=== PATIENT | female | born 1950 | race Caucasian/White ===

== ENCOUNTER → 2017-08-29 | Day surgery (SDC) | payer OTHER ==
[2017-08-23 10:57] VITALS: BMI 39.0
[~2017-08-29] VITALS: Ht 162.6 cm; Wt 105.9 kg
[~2017-08-29] MED LIST: ADVIN25/60 INH; ASPCH81X PO; ATOR-24 PO; BUME1TAB PO; CYM/60 PO; GABA600T PO; GLIP-199 PO; INSDGI SC; INSU100I SC; IPRASOL4 INH; LIDOCAINE HCL 2% 2 ML VIAL (20MG/ML) ONE; LISI-461 PO; LORA-741 PO; MELATAB2 PO; METF-383 PO; MONT1TAB3 PO; NITR0.4D6 PO; ONDA4TAB46 PO; POTA1TAB97 PO; PRLSR20 PO; PROPOFOL IV EMULSION 10 MG/ML 20 ML VIAL IV ONE; RANI150T3 PO; SODIUM CHLORIDE 0.9% 500ML 500 ML IV ONE; VNTHFA/IN INH
[2017-08-29 10:28] VITALS: Ht 162.6 cm; Wt 105.9 kg
--- NOTE | 2017-08-29 10:43 | Endo History and Physical ---
History & Physical Date of Service: Aug 29, 2017. Chief Complaint: dysphagia Referring Physician: POLINA Vazquez History of Present Illness patient with dysphagia Past Surgical History Hx Internal Defibrillator: No Hx Pacemaker: No Hx Abdominal Surgery: Yes (DRU BSO) Hx of Implantable Prosthesis: No Hx Post-Op Nausea and Vomiting: No Hx Cancer Surgery: Yes (SKIN EXCISION) Hx Thoracic Surgery: No Hx Orthopedic: Yes (CERVICAL FUSION (GOOD ROM), RT/LEFT TKA) Hx Urinary Tract Surgery: No Family History None Social History Smoking Status: Never Smoker Hx Substance Use: No Hx Alcohol Use: No Allergies Coded Allergies: Adhesives (Verified Allergy, Unknown, SKIN IRRITATION, 08/29/17) NO KNOWN DRUG ALLERGIES (Verified Allergy, Unknown, ., 08/29/17) Current Medications Reported Home Medications Medications Dose Route/Sig Max Daily Dose Days Date Category Dose Instructions Ventolin Hfa (Albuterol) 200 Puffs/00373 Mcg Aers 2-4 Puffs INH Q6H PRN 08/23/17 Reported Singulair (Montelukast Sodium) 10 Mg Tab 10 Mg PO QAM 08/23/17 Reported Zantac (Ranitidine HCl) 150 Mg Tab 150 Mg PO BID 08/23/17 Reported K-Tab (Potassium Chloride) 20 Meq Tab 1 Tab PO QAM 08/23/17 Reported Zofran (Ondansetron HCl) 4 Mg Tab 4 Mg PO DIRECTED PRN 08/23/17 Reported Nitroglycerin 0.4 Mg/Hr Dis 1 Dose PO DIRECTED PRN 08/23/17 Reported Prilosec (Omeprazole) 20 Mg Capcr 2 Tab PO QAM 08/23/17 Reported Glucophage (Metformin Hcl) 850 Mg Tab 850 Mg PO BID 08/23/17 Reported Melatonin Maximum Strengt (Melatonin) 5 Mg Tab 3 Tab PO HS 08/23/17 Reported Zestril (Lisinopril) 10 Mg Tab 10 Mg PO QAM 08/23/17 Reported Lantus (Insulin Glargine) 100 Unit/Ml Inj 40-60 Units SC HS 08/23/17 Reported Humalog (Insulin Lispro (Human)) 100 Unit/Ml Inj 1 Dose SC WM 08/23/17 Reported PER SLIDING SCALE Glipizide Er (Glipizide) 10 Mg Tab 2 Tab PO BID 08/23/17 Reported Neurontin (Gabapentin) 600 Mg Tab 600 Mg PO QID 08/23/17 Reported Advair Diskus 250/50 60 Dose (Fluticasone Prop/Salmeterol) 1 Ea Aerp 1 Puff INH QAM 08/23/17 Reported Duoneb (Ipratropium-Albuterol) 3 Ml Nebu 1 Treatment INH Q4H PRN 08/23/17 Reported Cymbalta (Duloxetine HCl) 60 Mg Cap 1 Cap PO QAM 08/23/17 Reported Bumex (Bumetanide) 1 Mg Tab 1 Mg PO QAM 08/23/17 Reported Lipitor (Atorvastatin Calcium) 40 Mg Tab 40 Mg PO QPM 08/23/17 Reported Ativan (Lorazepam) 0.5 Mg Tab 0.5 Mg PO DAILY PRN 08/23/17 Reported Aspirin Chewable (Aspirin) 81 Mg Chew 81 Mg PO QAM 08/23/17 Reported Vital Signs Weight (Kilograms): 105.91 Height (Feet): 5 Height (Inches): 4 Date Time Temp Pulse Resp B/P (MAP) Pulse Ox O2 Delivery O2 Flow Rate FiO2 08/29/17 10:36 36.4 81 20 163/76 (105) 98 Room Air Physical Exam General Appearance: no apparent distress Respiratory/Chest: Auscultation: breath sounds normal Cardiovascular: Heart Auscultation: RRR Abdomen: Inspection & Palpation: soft Liver: non-tender Assessment and Plan stable for EGD
--- NOTE | 2017-08-29 11:10 | GI REPORT ---
Procedure Date: 08/29/2017 10:53 AM Procedure: Upper GI endoscopy Indications: Epigastric abdominal pain, Dysphagia, Abdominal bloating Medicines: See the Anesthesia note for documentation of the administered medications Complications: No immediate complications. Estimated Blood Loss: Estimated blood loss: none. Procedure: Pre-Anesthesia Assessment: - Prior to the procedure, a History and Physical was performed, and patient medications, allergies and sensitivities were reviewed. The patient's tolerance of previous anesthesia was reviewed. - The risks and benefits of the procedure and the sedation options and risks were discussed with the patient. All questions were answered and informed consent was obtained. - Patient identification and proposed procedure were verified prior to the procedure by the physician and the nurse. The procedure was verified in the pre-procedure area. - Pre-procedure physical examination revealed no contraindications to sedation. - After reviewing the risks and benefits, the patient was deemed in satisfactory condition to undergo the procedure. After obtaining informed consent, the endoscope was passed under direct vision. Throughout the procedure, the patient's blood pressure, pulse, and oxygen saturations were monitored continuously. The scope was introduced through the mouth, and advanced to the third part of duodenum. The upper GI endoscopy was accomplished without difficulty. The patient tolerated the procedure well. Findings: The esophagus was normal. The stomach was normal. The examined duodenum was normal. The cardia and gastric fundus were normal on retroflexion. Impression: - Normal esophagus. - No stricture seen. - Normal stomach. - Normal examined duodenum. - No specimens collected. Recommendation: - Discharge patient to home. Ulysses Barksdale M.D. Ulysses Barksdale MD 08/29/2017 11:10:13 AM This report has been signed electronically. Note Initiated On: 08/29/2017 10:53 AM I attest to the content of the Intraoperative Record and orders documented therein, exceptions below
--- NOTE | 2017-08-29 11:10 | Discharge Instructions ---
Endoscopy Patient Instructions Date / Procedure(s) Performed Aug 29, 2017. EGD Allergy Information Coded Allergies: Adhesives (Verified Allergy, Unknown, SKIN IRRITATION, 08/29/17) NO KNOWN DRUG ALLERGIES (Verified Allergy, Unknown, ., 08/29/17) Discharge Date / Findings Aug 29, 2017. normal EGD Medication Instructions Stopped Medication(s): none taken Provider Instructions Activity Restrictions - No exercising or heavy lifting for 24 hours. - Do not drink alcohol the day of the procedure. - Do not drive a car or operate machinery until the day after the procedure. - Do not make any important decisions or sign important papers in 24 hours after the procedure. Following Day: - Return to full activity which may include returning to work/school. Diet Start your diet with liquids and light foods (jello, soup, juice, toast). Then eat your usual diet if not nauseated. Treatment For Common After Affects For mild abdominal pain, bloating, or excessive gas: - Rest - Eat lightly - Lie on right side Follow-Up Information Follow-up with POLINA Vazquez as scheduled Anesthesia Information What You Should Know You have had a procedure that required some medicine to reduce anxiety and discomfort. This treatment is called moderate sedation. After receiving the treatment, you may be sleepy, but you will be able to breathe on your own. The effects of the treatment may last for several hours. Follow these instructions along with Activity/Diet recommendations noted above: * Do NOT do anything where dizziness or clumsiness would be dangerous. * Rest quietly at home today, then you can be up and about tomorrow. * Have a responsible person stay with you the rest of today. * You may have had an I.V. today. If so, you may take the dressing off later today. Recommendations Call your doctor if: * Trouble breathing * Continuous vomiting for more than 24 hours * Temperature above 101 degrees * Severe abdominal pain or bloating * Pain not relieved by pain medicine ordered * There is increased drainage or redness from any incision * A large amount of rectal bleeding greater than 2-3 tablespoons. (If you had a polyp/s removed or have hemorrhoids, a small amount of blood - from the rectum is to be expected.) * You have any unanswered questions or concerns. IN THE EVENT OF A SERIOUS EMERGENCY, GO TO THE NEAREST EMERGENCY ROOM Your discharge instructions were prepared by provider Ulysses Barksdale. Patient Instructions Signature Page Amy Crook Patient (or Guardian) Signature/Date: I have read and understand the instructions given to me by my caregivers. Caregiver/RN/Doctor Signature/Date: The above-named patient and/or guardian has received patient instructions on this date. + Original Patient Signature Page (only) stays with chart. Please make copy for patient.
--- NOTE | 2017-08-29 11:48 | Anesthesiology Progress Note ---
Anesthesia Post Op Note Date & Time Aug 29, 2017 at 11:48 Vital Signs Pain Intensity: 0 Vital Signs Past 12 Hours Date Time Temp Pulse Resp B/P (MAP) Pulse Ox O2 Delivery O2 Flow Rate FiO2 08/29/17 11:30 79 20 134/71 (92) 95 Room Air 08/29/17 11:15 77 16 111/65 (80) 98 Room Air 08/29/17 10:36 36.4 81 20 163/76 (105) 98 Room Air Notes Mental Status: alert / awake / arousable, participated in evaluation Pt Amnestic to Procedure: Yes Nausea / Vomiting: adequately controlled Pain: adequately controlled Airway Patency, RR, SpO2: stable & adequate BP & HR: stable & adequate Hydration State: stable & adequate Anesthetic Complications: no major complications apparent
[2017-08-29 11:56] VITALS: BP 142/74; PULSE 73; O2SAT 95
== END | disposition home or self-care (01) ==
LOC: C.GI 10:07
PROVIDERS: ATTEND Internal Medicine Gastroenterology
DX: R10.13 Epigastric pain (principal); R13.10 Dysphagia, unspecified; I25.10 Atherosclerotic heart disease of native coronary artery without angina pectoris; I10 Essential (primary) hypertension; E11.9 Type 2 diabetes mellitus without complications; J45.909 Unspecified asthma, uncomplicated; F32.9 Major depressive disorder, single episode, unspecified; E66.01 Morbid (severe) obesity due to excess calories; Z68.41 Body mass index [BMI] 40.0-44.9, adult; Z98.890 Other specified postprocedural states; Z96.653 Presence of artificial knee joint, bilateral; Z79.4 Long term (current) use of insulin; Z79.899 Other long term (current) drug therapy; Z79.82 Long term (current) use of aspirin; Z85.828 Personal history of other malignant neoplasm of skin